=== PATIENT | female | born 1970 | race Caucasian/White ===

== ENCOUNTER 2017-03-25 20:32 | Emergency (ER) | payer OTHER ==
[2017-03-25] MEDS ORDERED: Acetaminop/Codeine 30 MG TAB* 1 TAB (300 MG/30 MG) PO ONE (20:38)
[2017-03-25 20:49] VITALS: BP 131/83
[2017-03-25] MEDS ORDERED: Morphine VIAL* 10 MG/ML 1 ML VIAL IM ONE (20:56)
--- NOTE | 2017-03-25 21:09 | RAD ---
INDICATION: Wrist pain after a fall COMPARISON: None. TECHNIQUE: 3 views left wrist. REPORT: There is a fracture at the distal left radius with the distal fracture fragment displaced dorsally and partially overlying the proximal shaft of the radius. Remaining visualized bones are intact and appropriately aligned. IMPRESSION: Displaced distal left radius fracture as described above.
--- NOTE | 2017-03-25 21:14 | UC ---
Upper Extremity HPI - HPI Summary HPI Summary: Patient fell playing basketball fell and hurt the left wrist, patient is in extreme pain, it is splinted and fingers are pale, radial pulse palpable, cap refill is good - History of Current Complaint Chief Complaint: UCUpperExtremity Stated Complaint: LEFT WRIST INJURY Time Seen by Provider: 03/25/17 20:36 Hx Obtained From: Patient Hx Last Menstrual Period: NONE ?: No Onset/Duration: Sudden Onset, Lasting Hours Severity Initially: Severe Severity Currently: Severe Character: Aching, Throbbing Aggravating Factor(s): Movement Alleviating Factor(s): Nothing Associated Signs And Symptoms: Positive: Swelling, Other - deformity - Allergies/Home Medications Allergies/Adverse Reactions: Allergies Allergy/AdvReac Type Severity Reaction Status Date / Time No Known Allergies Allergy Verified 03/25/17 20:49 Home Medications: Home Medications Ibuprofen TAB* [Advil TAB*] 400 mg PO Q6H PRN 03/25/17 [History Confirmed ] PMH/Surg Hx/FS Hx/Imm Hx Previously Healthy: Yes - Surgical History Surgical History: None - Family History Known Family History: Positive: Hypertension - Social History Alcohol Use: Rare Substance Use Type: None Smoking Status (MU): Never Smoked Tobacco Review of Systems Constitutional: Negative Skin: Negative Eyes: Negative ENT: Negative Respiratory: Negative Cardiovascular: Negative Gastrointestinal: Negative Genitourinary: Negative Motor: Negative Neurovascular: Negative Musculoskeletal: Arthralgia, Decreased ROM, Edema, Myalgia Neurological: Negative Psychological: Negative Is Patient Immunocompromised?: No All Other Systems Reviewed And Are Negative: Yes Physical Exam Triage Information Reviewed: Yes Appearance: Well-Nourished, Ill-Appearing, Pain Distress Vital Signs: Initial Vital Signs Temp 97.7 F 03/25/17 20:37 Pulse 72 03/25/17 20:37 Resp 16 03/25/17 20:37 BP 131/83 03/25/17 20:37 Pulse Ox 131 03/25/17 20:37 Vital Signs Reviewed: Yes Eye Exam: Normal ENT Exam: Normal Dental Exam: Normal Neck exam: Normal Neck: Positive: Supple, Nontender, No Lymphadenopathy Respiratory Exam: Normal Respiratory: Positive: Chest non-tender, Lungs clear, Normal breath sounds Cardiovascular Exam: Normal Cardiovascular: Positive: RRR, No Murmur, Pulses Normal Musculoskeletal: Positive: Strength Limited @, ROM Limited @ - splinted and deformity noted,, Edema @ - mild swelling, compression wrap applied right after injury, notable deformity Neurological Exam: Normal Psychological Exam: Normal Skin: Positive: Other - pale Upper Extremity Course/Dx - Course Course Of Treatment: hx obtained, exam performed ,meds reviewed, xray positive for dislocation and fracture, patients want to say local for treatment, consulted [facility] 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 - Differential Dx/Diagnosis Differential Diagnosis/HQI/PQRI: Contusion, Fracture (Open), Strain, Sprain Provider Diagnoses: radial fracture and dislocation of left wrist Discharge - Discharge Plan Condition: Stable Disposition: HOME Patient Education Materials: Wrist Injury (ED) Additional Instructions: Report to [place], they have been made aware of your upcoming arrival.
== END 2017-03-25 21:15 | disposition home or self-care (01) ==
LOC: UCCORT 20:32
DX: S52.502A Unspecified fracture of the lower end of left radius, initial encounter for closed fracture (principal); W18.30XA Fall on same level, unspecified, initial encounter; Y93.67 Activity, basketball; Y92.310 Basketball court as the place of occurrence of the external cause
CPT/HCPCS: 96372; 99202; A9270-GY; G0463; J2270

== ENCOUNTER 2017-04-07 09:06 | Emergency (ER) | payer OTHER ==
[2017-04-07 10:05] VITALS: BP 142/99
--- OUTSIDE RECORDS SUMMARY | 2017-04-07 10:11 | XMS REPORT | Continuity of Care Document ---
:1970 Author Organization [facility] Care Team Providers Name Role Phone Unavailable Primary Care Physician Unavailable Insurance Providers Payer Name Policy Number Subscriber Name Relationship [employer] [facility] [id number] CARMEN VILLARREAL SELF Advance Directives Directive Response Recorded Date/Time Advance Directive? N 03/27/17 6:39am Living Will? N 03/27/17 6:39am Health Care Proxy? N 03/27/17 6:39am Is the patient an Organ Donor? N 03/25/17 9:37pm Chief Complaint and Reason for Visit Reason for Visit LT WRIST Problems Active Medical Problems Problem Onset Date Recorded Date Status Wrist fracture, left Unknown 03/25/17 Active Medications Current Home Medications Medication Dose Units Route Directions Days/Qty Instructions Start Date FLUTIC/SALMET. 1 PUFF INHALATION 2 TIMES A DAY 250/50 (ADVAIR 250-50 DISKUS) 1 INH DISK.W.DEV Hydrocodone 1 TABLET ORAL EVERY 4-6 HOURS 15 PAIN 03/25/17 Bit/Acetaminophe NEEDED as n needed for PAIN (Hydrocodon-Acet aminophen 5-325 *) 5 MG-325 MG TABLET Ibuprofen 600 MG 600 MG ORAL 3 TIMES A DAY 30 03/25/17 TABLET NEEDED as needed for PAIN Social History Query Response Start Date Stop Date Smoking Status Never smoker Hospital Discharge Instructions No hospital discharge instructions. Plan of Care Discharge Date 03/25/17 Disposition Routine Discharge Home Condition at Discharge STABLE Instructions/Education Provided Wrist Fracture in Adults (ED) Prescriptions See Medications Section Referrals DENI HENDRIX MD - [facility] AGUILAR MD - Additional Instructions/Education You need to make an appointment to follow- up with the following health care provider or your regular doctor within 3 days. Please make your appointment to see your health care provider as soon as possible. Please return immediately if your symptoms worsen, or you cannot get a follow-up appointment. Keep the splint on in uses shoulder immobilizer in use Tylenol or ibuprofen or hydrocodone for pain. Keep the wrist elevated and follow up with Dr. Aguilar. We have written a work note for this week. Functional Status Query Response Date Recorded Do you get in and out of a chair: Independently March 27, 2017 11:24am Do you walk: Independently March 27, 2017 11:24am Do you bathe/dress: Independently March 27, 2017 11:24am Adaptive devices: Sling/splint/brace March 27, 2017 11:24am Living situation: Independent at home March 27, 2017 11:24am Allergies, Adverse Reactions, Alerts Allergen Type Severity Reaction Status Last Updated ciprofloxacin Allergy Unknown HIVES Active 03/27/17 Immunizations Name Date Given Type Influenza vaccine (date): N Historical Pneumococcal vaccine (date): N Historical Vital Signs Vital Reading Collection Date/Time Result Blood Pressure 03/27/17 3:30pm 143/90 Temperature 03/27/17 1:51pm 98.4 F Temperature Source 03/27/17 1:51pm Temporal Respiratory Rate 03/27/17 3:30pm 16 Pulse Rate 03/27/17 3:30pm 66 Bedside Pulse Oximetry 03/27/17 3:30pm 99 Height 03/27/17 6:39am 5 ft 7 in Height 03/27/17 6:39am 170.18 cm Weight 03/27/17 6:39am 179 lb Weight 03/27/17 6:39am 81.193 kg Body Mass Index 03/27/17 6:39am 28.0 kg/m2 Results No known relevant diagnostic tests, laboratory data and/or discharge summary. Procedures Procedure Status Date Provider(s) WRIST LIMITED 2 VIEWS Active 03/25/17 HARLEY BEGUM MD WRIST LIMITED 2 VIEWS Active 03/27/17 [facility] AGUILAR MD FLUORO GUIDANCE UP TO 1HR Active 03/27/17 [facility]MM AGUILAR MD Encounters Encounter Location Arrival/Admit Date Discharge/Depart Date Attending Provider Departed [place] 03/27/17 10:35am 03/27/17 3:21pm [facility] [place] [facility] 9:19pm 03/25/17 11:28pm [facility]
--- OUTSIDE RECORDS SUMMARY | 2017-04-07 10:11 | XMS REPORT | Continuity of Care Document ---
:1970 Author Organization [facility] Care Team Providers Name Role Phone DENI HENDRIX MD Primary Care Physician [phone] Insurance Providers Payer Name Policy Number Subscriber Name Relationship [employer]ET[employer] [facility] [id number] CARMEN VILLARREAL SELF Advance Directives Directive Response Recorded Date/Time Advance Directive? N 03/25/17 9:37pm Living Will? N 03/25/17 9:37pm Health Care Proxy? N 03/25/17 9:37pm Is the patient an Organ Donor? N 03/25/17 9:37pm Chief Complaint and Reason for Visit Reason for Visit LT WRIST Problems Active Medical Problems Problem Onset Date Recorded Date Status Wrist fracture, left Unknown 03/25/17 Active Medications Current Home Medications Medication Dose Units Route Directions Days/Qty Instructions Start Date Hydrocodone 1 TABLET ORAL EVERY 4-6 HOURS 15 PAIN 03/25/17 Bit/Acetaminophen NEEDED as (Hydrocodon-Acetam needed for PAIN inophen 5-325 *) 5 MG-325 MG TABLET Ibuprofen [...] Medications Section Referrals DENI HENDRIX MD - LAURENUMM PANDEY MD - Additional Instructions/Education You need to [...] wrist elevated and follow up with Dr. Roblero. We have written a work note for this week. Functional Status Query Response Date Recorded Do you get in and out of a chair: Independently March 25, 2017 9:42pm Do you walk: Independently March 25, 2017 9:42pm Do you bathe/dress: Independently March 25, 2017 9:42pm Living situation: Independent at home March 25, 2017 9:42pm Mood: Accepting March 25, 2017 9:42pm Orientation: X3: Person/place/time March 25, 2017 9:42pm Allergies, Adverse Reactions, Alerts Allergen Type Severity Reaction Status Last Updated ciprofloxacin Allergy Unknown HIVES Active 03/25/17 Immunizations No Known History of Immunizations. Vital Signs Vital Reading Collection Date/Time Result Blood Pressure 03/25/17 11:02pm 127/77 Temperature 03/25/17 11:02pm 99.0 F Temperature Source 03/25/17 11:02pm Oral Respiratory Rate 03/25/17 11:02pm 14 Pulse Rate 03/25/17 11:02pm 76 Bedside Pulse Oximetry 03/25/17 11:02pm 97 Weight 03/25/17 10:40pm 173 lb Weight 03/25/17 10:40pm 78.471 kg Results No known relevant diagnostic tests, laboratory data and/or discharge summary. Procedures Procedure Status Date Provider(s) WRIST LIMITED 2 VIEWS Active 03/25/17 HARLEY BEGUM MD Encounters Encounter Location Arrival/Admit Date Discharge/Depart Date Attending Provider Departed [place] 03/25/17 9:19pm 03/25/17 11:28pm HARLEY BEGUM [facility] Encounter Diagnosis Onset Date Wrist fracture, left
--- NOTE | 2017-04-07 10:33 | UC ---
Lower Extremity/Ankle HPI - HPI Summary HPI Summary: was playing basketball a couple of weeks ago and fx her left wrist, also having some right foot pain but that wasnt bothering her as much at that time. Since then the top of her right foot is tender, bruised, and painful with walking - History of Current Complaint Chief Complaint: UCLowerExtremity Stated Complaint: RIGHT FOOT PAIN Hx Obtained From: Patient Hx Last Menstrual Period: NONE ?: No Onset/Duration: Gradual Onset, Lasting Weeks Severity Initially: Moderate Severity Currently: Moderate Pain Scale Used: 0-10 Numeric - 4/10 - Allergies/Home Medications Allergies/Adverse Reactions: Allergies Allergy/AdvReac Type Severity Reaction Status Date / Time Ciprofloxacin [From Cipro] Allergy Severe Hives Verified 04/07/17 09:57 PMH/Surg Hx/FS Hx/Imm Hx - Surgical History Surgical History: Yes Surgery Procedure, Year, and Place: RIGHT WRIST SURGRY - Family History Known Family History: Positive: Hypertension - Social History Alcohol Use: Rare Substance Use Type: None Smoking Status (MU): Never Smoked Tobacco Review of Systems Constitutional: Negative Skin: Negative Eyes: Negative ENT: Negative Respiratory: Negative Cardiovascular: Negative Gastrointestinal: Negative Genitourinary: Negative Motor: Decreased ROM Neurovascular: Negative Musculoskeletal: Myalgia, Other: - right foot pain Neurological: Negative Psychological: Negative Is Patient Immunocompromised?: No All Other Systems Reviewed And Are Negative: Yes Physical Exam Triage Information Reviewed: Yes Appearance: Well-Appearing, Well-Nourished Vital Signs: Initial Vital Signs Temp 98.6 F 04/07/17 09:58 Pulse 64 04/07/17 09:58 Resp 16 04/07/17 09:58 BP 142/99 04/07/17 09:58 Pulse Ox 100 04/07/17 09:58 Vital Signs Reviewed: Yes Eyes: Positive: Conjunctiva Clear ENT: Positive: Normal ENT inspection Neck: Positive: Supple Respiratory Exam: Normal Respiratory: Positive: Chest non-tender, Lungs clear, Normal breath sounds Cardiovascular Exam: Normal Cardiovascular: Positive: RRR Musculoskeletal Exam: Other - top of right paper plate machine tender to touch limited ROM present Musculoskeletal: Positive: ROM Limited @ Neurological Exam: Normal Neurological: Positive: Alert Psychological Exam: Normal Psychological: Positive: Normal Response To Family, Age Appropriate Behavior Skin Exam: Normal Diagnostics - Laboratory Diagnostic Studies Completed/Ordered: xray right foot Lower Extremity Course/Dx - Differential Dx/Diagnosis Provider Diagnoses: right foot pain Discharge - Discharge Plan Condition: Stable Disposition: HOME Referrals: Esteban Lala MD [Primary Care Provider] - 1 Week
--- NOTE | 2017-04-07 11:30 | RAD ---
INDICATION: Dorsal foot pain since inversion injury March 24, 2017 COMPARISON: None. TECHNIQUE: 3 views of the right foot were obtained. FINDINGS: The adequately corticated bones are properly aligned. Joint spaces appear maintained. No fracture, dislocation or focal bony abnormality is seen. IMPRESSION: Normal radiograph of the right foot. If the patient's symptoms persist, follow-up imaging is recommended.
--- NOTE | 2017-04-07 11:41 | UC ---
Progress - Progress Note Progress Note: foot xray - right foot xray negative. will emerald wrap it. f/u in 2 weeks with pcp if symptoms not resolving continue ibuprofen 600mg po every 6 hours prn needs no rx's - EKG/XRAY/CT XRAY: right foot
== END 2017-04-07 11:57 | disposition home or self-care (01) ==
LOC: UCCORT 09:06
DX: M79.671 Pain in right foot (principal); Z88.1 Allergy status to other antibiotic agents
CPT/HCPCS: 99212; G0463